=== PATIENT | male | born 1970 | race Caucasian/White ===

== ENCOUNTER 2020-05-07 08:31 | Emergency (ER) | payer BC, SELFPAY ==
[2020-05-07 08:48] VITALS: BP 205/122; PULSE 82; RESP 18; TEMP 36.6; O2SAT 99; BMI 24.3
[2020-05-07 08:55] VITALS: PULSE 105; RESP 16; O2SAT 100
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
--- NOTE | 2020-05-07 09:18 | XRR_ITS ---
PROCEDURE INFORMATION: Exam: XR Left Foot Exam date and time: 05/07/2020 9:48 AM Age: 49 years old Clinical indication: Injury or trauma; Fall; Blunt trauma; Foot; Left; Patient HX: PT refused to answer screening questions TECHNIQUE: Imaging protocol: XR Left foot. Views: 1 or 2 views. COMPARISON: No relevant prior studies available. FINDINGS: Bones/joints: hindfoot-midfoot and midfoot-forefoot articulations are normal. metatarsals and the phalanges without an acute process. subtalar joint and the tibiotalar joint appears normal. Soft tissues: Normal. XR/XR foot LT 2V [id number] IMPRESSION: Normal foot. Limited exam. Two views only.
--- NOTE | 2020-05-07 09:18 | XRR_ITS ---
PROCEDURE INFORMATION: Exam: XR Left Ankle Exam date and time: 05/07/2020 9:48 AM Age: 49 years old Clinical indication: Injury or trauma; Fall; Blunt trauma; Ankle; Left; Patient HX: PT refused to answer screening questions TECHNIQUE: Imaging protocol: XR Left ankle. Views: 1 or 2 views. COMPARISON: No relevant prior studies available. FINDINGS: Bones/joints: Medial and lateral malleoli are normal. Ankle mortise is symmetrical. No fracture. Hindfoot is unremarkable. Tibiotalar joint and subtalar joint normal. Soft tissues: Soft tissue swelling most conspicuous laterally. XR/XR ankle LT 2V [id number] IMPRESSION: 1. Normal osseous ankle. 2. Soft tissue swelling most conspicuous laterally.
[2020-05-07 11:10] VITALS: BP 145/78; PULSE 85; RESP 18; O2SAT 98
== END 2020-05-07 11:19 | disposition home or self-care (01) ==
PROVIDERS: Emergency Provider Nurse Practitioner Family
DX: S93.402A Sprain of unspecified ligament of left ankle, initial encounter (principal); S96.912A Strain of unspecified muscle and tendon at ankle and foot level, left foot, initial encounter; L08.9 Local infection of the skin and subcutaneous tissue, unspecified; X58.XXXA Exposure to other specified factors, initial encounter
CPT/HCPCS: 12345; 29515; 73600; 73620; 99282; 99283